=== PATIENT | male | born 2000 | race Two or more races ===

== ENCOUNTER 2021-08-02 06:36 | Emergency (ER) | payer SELFPAY ==
[~2021-08-02] VITALS: Ht 165.1 cm; Wt 79.4 kg
[2021-08-02 06:38] VITALS: BP 126/77
--- NOTE | 2021-08-02 06:38 | NUR ---
BIBR 837 C/O GEN BODY PAIN, ANXIETY, & PARANOIA. PT TOOK "CRYSTAL METH" 3 HRS AGO. PT A/OX4. TOLERATING R/A WELL W/O SOB, NON LABORED BREATHING. SAFETY MEASURES IN PLACE.
[2021-08-02] MEDS ORDERED: IBUPROFEN 600 MG TABLET ONE (06:52)
[2021-08-02] MEDS: IBUPROFEN 600 MG TABLET PO ONE (06:58)
--- NOTE | 2021-08-02 06:58 | NUR ---
Patient discharged to home in stable condition. Written and verbal after care instructions given. Patient verbalizes understanding of instruction. PT ambulatory with a steady gait
== END 2021-08-02 07:00 | disposition home or self-care (01) ==
LOC: ER 06:36
DX: F15.10 Other stimulant abuse, uncomplicated (principal)